=== PATIENT | female | born 1995 | race African-American/Black ===

== ENCOUNTER 2016-11-07 21:09 | Emergency (ER) | payer OTHER ==
[2016-11-07 21:30] VITALS: BP 137/94; PULSE 77; TEMP 98.3; BMI 26.9
--- NOTE | 2016-11-08 00:13 | PDOC ---
History of Present Illness - General Chief Complaint: RX Refill Stated Complaint: FEELS ALLERGIC RX Time Seen by Provider: 11/07/16 21:47 - History of Present Illness Initial Comments: This 21-year-old woman, with no significant past medical history, was evaluated and treated here approximately 3 weeks ago for lip edema. At that time, she had no other tongue or uvular edema/stridor/wheezing. She was given a shot of Decadron and hydroxyzine prescription. She states that she had full resolution of the symptoms after this treatment.. Etiology of the presumed ALLERGIC reaction was unclear, but she had recently completed course of amoxicillin at that time. Tonight, approximately 2 hours prior to presentation, she noted tingling/slight numbness of her lower lip. These were the symptoms that she had just prior to onset of edema of her lip 3 weeks ago. She denies difficulty swallowing/difficulty breathing or wheezing/rash. There is been no new medication or exposure to new foods. Patient has been evaluated by an ENT/ allergist/md in the past and was told she had no ALLERGIES. Patient is a local college student; she is from [place] and has no local doctor Past History - Past Medical History Allergies/Adverse Reactions: Allergies Allergy/AdvReac Type Severity Reaction Status Date / Time No Known Allergies Allergy Verified 10/14/16 14:36 Home Medications: Ambulatory Orders Fluticasone Prop 0.05% Nasal [Flonase -] 1 - 2 spray NS HS 10/14/16 Hydroxyzine Pamoate [Vistaril -] 50 mg PO TID #15 capsule 10/14/16 Norethindrone-E.estradiol-Iron [Blisovi 24 Fe Tablet] 1 each PO HS 10/14/16 Hydroxyzine HCl [Atarax -] 25 mg PO TID PRN #20 tablet 11/08/16 Other medical history: DENIES - Immunization History Immunization Up to Date: Yes - Psycho/Social/Smoking Cessation Hx Anxiety: No Suicidal Ideation: No Smoking History: Never smoked Hx Alcohol Use: No Drug/Substance Use Hx: No Substance Use Type: None Review of Systems - Review of Systems Able to Perform ROS?: Yes Comments:: 12 point review of systems is negative except for what is noted in the history of present illness *Physical Exam - Vital Signs Last Vital Signs Temp Pulse Resp BP Pulse Ox 98.3 F 77 18 137/94 100 11/07/16 21:21 11/07/16 21:21 11/07/16 21:21 11/07/16 21:21 11/07/16 21:21 - Physical Exam Comments: GENERAL: Awake, alert, and fully oriented, in no acute distress HEAD: No signs of trauma EYES: PERRLA, EOMI, sclera anicteric, conjunctiva clear ENT: Mild lower lip edema, upper lip normal, nares patent, oropharynx clear without exudates. Moist mucosa No tongue/uvular edema NECK: Normal ROM, supple, no lymphadenopathy, JVD, or masses; no stridor LUNGS: Breath sounds clear and equal. No wheezes, and no crackles HEART: Regular rate and rhythm, normal S1 and S2, no murmurs, rubs or gallops ABDOMEN: Soft, nontender, normoactive bowel sounds. No guarding, no rebound. No masses EXTREMITIES: Normal range of motion, no edema. No clubbing or cyanosis. No cords, erythema, or tenderness NEUROLOGICAL: Cranial nerves II through XII grossly intact. Normal speech, normal gait SKIN: Warm, Dry, normal turgor, no rashes or lesions noted. Medical Decision Making - Medical Decision Making This 21-year-old woman with history of upper lip edema 3 weeks ago now presents with possible early lower lip edema. Patient has tingling/numbness of the lower lip which she felt just prior to onset of significant upper lip edema treated here 3 weeks ago. Etiology of this first episode is unclear. If indeed this is beginning of lower lip edema, there is no clear exposure to new allergen. Patient takes no medications No family history of angioedema Exam notable only for mild lower lip swelling; remainder of the exam is normal Because the patient had relief of all of her upper lip edema after Decadron 4 mg IM and subsequent hydroxyzine as needed, we will duplicate this treatment. The patient should return if she has worsening of her symptoms. Patient is a college student locally; she has no general medical doctor for follow-up. Since she is in the [facility], we will give her referral information for Dr. Garcia with whom she should follow-up within the next week. *DC/Admit/Observation/Transfer Diagnosis at time of Disposition: Angioedema Qualifiers: Encounter type: initial encounter Qualified Code(s): T78.3XXA - Angioneurotic edema, initial encounter - Discharge Dispostion Disposition: HOME Condition at time of disposition: Stable - Prescriptions Prescriptions: Hydroxyzine HCl [Atarax -] 25 mg PO TID PRN #20 tablet PRN Reason: For Itching - Referrals Referrals: Maxx Garcia MD [Staff Physician] - 1 week - Patient Instructions Printed Discharge Instructions: DI for Angioedema Additional Instructions: hydroxyzine 25mg up to three times a day for itching/swelling return to ER immediately if lip/tongue swelling worsens return to ER if you have difficulty swallowing or breathing followup with Dr Garcia within 1 week
[2016-11-08] MEDS ORDERED: DEXAMETHASONE SOD PHOSPHATE 4 MG/1 ML VIAL IM ONE (00:20)
[2016-11-08] MEDS ORDERED: DEXAMETHASONE SOD PHOSPHATE 4 MG/1 ML VIAL ONE (00:24)
== END 2016-11-08 00:33 | disposition home or self-care (01) ==
LOC: FER 21:09
PROC: 3E023GC Introduction of Other Therapeutic Substance into Muscle, Percutaneous Approach (ICD-10-PCS; principal; 2016-11-07)
DX: T78.3XXA Angioneurotic edema, initial encounter (principal)
CPT/HCPCS: 99281-25